=== PATIENT | male | born 1980 | race Caucasian/White ===

== ENCOUNTER 2018-11-29 07:40 | Day surgery (SDC) | payer OTHER ==
[~2018-11-29 07:40] MED LIST: Lactated Ringers 1,000 ML IV SCH; Lidocaine 1%/Sod Bicarbonate in NS 8.4% 1 ML Syringe IDERM PRN; Ropivacaine 0.5% 5 MG/ML 30 ML SDV ONE; Sodium Chloride 0.9% 10 ML Syringe FLUSH PRN
[2018-11-29] MEDS ORDERED: Rocuronium 50 MG/5 ML Vial ONE ×2 (07:42→09:24)
[2018-11-29] MEDS ORDERED: Ondansetron 4 MG/2 ML SDV ONE ×2 (07:42→09:24)
[2018-11-29] MEDS ORDERED: Lidocaine 1% 0 ML ONE (07:42)
[2018-11-29] MEDS ORDERED: Propofol 200 MG/20 ML SDV ONE ×2 (07:42→09:25)
[2018-11-29] MEDS ORDERED: Lactated Ringers 0 ML ONE (07:42)
[2018-11-29] MEDS ORDERED: ceFAZolin 1 GM Vial ONE ×2 (07:42→09:28)
[2018-11-29] MEDS ORDERED: Dexamethasone 4 MG/ML 5 ML MDV ONE (07:43)
[2018-11-29] MEDS ORDERED: fentaNYL 250 MCG/5 ML SDV ONE ×2 (07:43→08:31)
[2018-11-29] MEDS ORDERED: Ketorolac 30 MG/ML SDV ONE (07:43)
[2018-11-29] MEDS ORDERED: Lidocaine 1% 2 ML ONE (07:59)
--- NOTE | 2018-11-29 08:18 | PCM.PREANE ---
Preanesthetic Assessment - Procedure Proposed Procedure: right shoulder video arthroscopy with biceps tenodesis - Anesthesia/Transfusion/Family Hx Anesthesia History: Prior Anesthesia Without Reaction Family History of Anesthesia Reaction: No Transfusion History: No Prior Transfusion(s) - Review of Systems General: No Symptoms Pulmonary: No Symptoms Cardiovascular: No Symptoms Gastrointestinal: No Symptoms Neurological: No Symptoms Other: Reports: None - Physical Assessment NPO Status Date: 11/28/18 NPO Status Time: 19:00 Pulse: 64 O2 Sat by Pulse Oximetry: 98 Respiratory Rate: 16 Blood Pressure: 130/78 Temperature: 97.4 F Height: 5 ft 10 in Weight: 91 kg ASA Class: 1 Mental Status: Alert & Oriented x3 Airway Class: Mallampati = 2 Dentition: Reports: Normal Dentition Thyro-Mental Finger Breadths: 3 Mouth Opening Finger Breadths: 3 ROM/Head Extension: Full Lungs: Clear to Auscultation, Normal Respiratory Effort Cardiovascular: Regular Rate, Regular Rhythm - Allergies Allergies/Adverse Reactions: Allergies Allergy/AdvReac Type Severity Reaction Status Date / Time No Known Allergies Allergy Verified 11/28/18 15:24 - Blood Blood Available: No - Acknowledgements Anesthesia Type Planned: General Anesthesia Pt an Appropriate Candidate for the Planned Anesthesia: Yes Alternatives and Risks of Anesthesia Discussed w Pt/Guardian: Yes Pt/Guardian Understands and Agrees with Anesthesia Plan: Yes PreAnesthesia Questionnaire HEENT History: Reports: Impaired Vision Cardiovascular History: Reports: None Respiratory History: Reports: None Gastrointestinal History: Reports: None Genitourinary History: Reports: None EXCEPTION[employer] CHILDREN'[employer] TE[employer]ER History: Reports: None Musculoskeletal History: Reports: Back Pain, Chronic, Other (See Below) Other Musculoskeletal History: low back pain, degenerative disc disease Neurological History: Reports: None Psychiatric History: Reports: None Endocrine/Metabolic History: Reports: None Hematologic History: Reports: None Immunologic History: Reports: None Oncologic (Cancer) History: Reports: None Dermatologic History: Reports: None - Past Surgical History Head Surgeries/Procedures: Reports: None HEENT Surgical History: Reports: None Cardiovascular Surgical History: Reports: None Respiratory Surgical History: Reports: None GI Surgical History: Reports: Appendectomy Female Surgical History: Reports: None Male Surgical History: Reports: None Endocrine Surgical History: Reports: None Neurological Surgical History: Reports: None Musculoskeletal Surgical History: Reports: None Oncologic Surgical History: Reports: None Dermatological Surgical History: Reports: None - SUBSTANCE USE Smoking Status *Q: Never Smoker Tobacco Use Within Last Twelve Months: No Second Hand Smoke Exposure: No Days Per Week of Alcohol Use: 3 Number of Drinks Per Day: 3 Total Drinks Per Week: 9 Recreational Drug Use History: No - HOME MEDS Home Medications: Home Meds . [No Known Home Meds] 11/28/18 [History] - CURRENT (IN HOUSE) MEDS Current Meds: Current Medications Epinephrine HCl (Adrenalin) 3 mg .XX ONETIME ONE Stop: 11/29/18 09:01 Lactated Ringer's (Ringers, Lactated) 1,000 mls @ 125 mls/hr IV ASDIRECTED NORA Stop: 11/29/18 23:00 Lidocaine/Sodium Bicarbonate (Buffered Lidocaine 1% In Ns 8.4%) 0.25 ml IDERM ONETIME PRN PRN Reason: Prior to IV Start Stop: 11/29/18 18:00 Sodium Chloride (Saline Flush) 10 ml FLUSH ASDIRECTED PRN PRN Reason: Keep Vein Open Stop: 11/29/18 18:00 Discontinued Medications Cefazolin Sodium (Ancef) Confirm Administered Dose 2 gm .ROUTE .STK-MED ONE Stop: 11/29/18 07:43 Dexamethasone (Dexamethasone) Confirm Administered Dose 20 mg .ROUTE .STK-MED ONE Stop: 11/29/18 07:44 Fentanyl (Sublimaze) Confirm Administered Dose 250 mcg .ROUTE .STK-MED ONE Stop: 11/29/18 07:44 Lidocaine HCl (Xylocaine-Mpf 1%) Confirm Administered Dose 4 mls @ as directed .ROUTE .STK-MED ONE Stop: 11/29/18 07:43 Lactated Ringer's (Ringers, Lactated) Confirm Administered Dose 1,000 mls @ as directed .ROUTE .STK-MED ONE Stop: 11/29/18 07:43 Lidocaine HCl (Xylocaine-Mpf 1%) Confirm Administered Dose 2 mls @ as directed .ROUTE .STK-MED ONE Stop: 11/29/18 08:00 Ketorolac Tromethamine (Toradol) Confirm Administered Dose 30 mg .ROUTE .STK- MED ONE Stop: 11/29/18 07:44 Ondansetron HCl (Zofran) Confirm Administered Dose 4 mg .ROUTE .STK-MED ONE Stop: 11/29/18 07:43 Propofol (Diprivan 20 Ml) Confirm Administered Dose 400 mg .ROUTE .STK-MED ONE Stop: 11/29/18 07:43 Rocuronium Arpin (Zemuron) Confirm Administered Dose 50 mg .ROUTE .STK-MED ONE Stop: 11/29/18 07:43 Ropivacaine (Naropin 0.5%) Confirm Administered Dose 30 ml .ROUTE .STK-MED ONE Stop: 11/29/18 07:07
[2018-11-29] MEDS ORDERED: Midazolam 1 MG/ML 2 ML SDV ONE ×2 (08:31→10:38)
[2018-11-29] MEDS ORDERED: EPINEPHrine 1 MG/ML 30 ML MDV ONE (09:00)
--- NOTE | 2018-11-29 09:08 | PCM.SN ---
- Free Text/Narrative Note: 11/29/18 0835 Time out performed. Requested to place left interscale block with ultrasound guidance and nerve stimulator for post op pain control per Dr. Martinez and patient. Preop diagnosis strain of right beveps. Procedure is right shoulder video arthroscopy with biceps tendosis Informed consent obtained. Monitors and O2 placed at 2 l per n/c. Versed 2 mg and Fentanyl 150 mcg given IV total. Patient awake and talking during procedure. Right neck and clavicle area prepped with chlorprep. Sterile gloves, hat and mask worn. US probe with sterile sleeve placed midclavicular with ID of brachial plexus and subclavian artery. Brachial plexus followed cephalad to level of cricoid. Lidocaine 1% local anesthetic injected prior to block placement. 22 g 2 inch stimplex needle advanced with US guidance to brachial plexus. Positive forearm response at ..4mA with nerve stimulator. Ceased with saline injection.Ropivacaine 0.5% with epi 1:200,000 injected in increments of 5 ml with negative aspiration before each injection to a total of 30 ml. Good spread of local anesthetic seen on US. Patient tolerated procedure well. Vitals stable with no complaints. See nurses notes. AJordaCRNA
[2018-11-29] MEDS ORDERED: Lidocaine 1% 4 ML ONE (09:25)
[2018-11-29] MEDS ORDERED: Lactated Ringers 1,000 ML ONE (10:50)
[2018-11-29] MEDS ORDERED: fentaNYL 100 MCG/2 ML SDV IVPUSH PRN (11:48)
--- NOTE | 2018-11-29 11:49 | PCM.POSTAN ---
POST ANESTHESIA ASSESSMENT - MENTAL STATUS Mental Status: Somnolent - VITAL SIGNS Pulse Rate: 63 SaO2: 91 Resp Rate: 16 Blood Pressure: 143/91 Temperature: 36.3 C - RESPIRATORY Respiratory Status: Respiratory Rate WNL, Airway Patent, O2 Saturation Stable, Supplemental Oxygen - CARDIOVASCULAR CV Status: Pulse Rate WNL, Blood Pressure Stable - GASTROINTESTINAL GI Status: No Symptoms - PAIN Pain Score: 0 - POST OP HYDRATION Hydration Status: Adequate & Stable - OBSERVATIONS Free Text/Narrative:: no anesthesia complications noted
[2018-11-29] MEDS ORDERED: Acetaminophen/HYDROcodone 325-5 MG Tab PO PRN (12:34)
--- NOTE | 2018-11-29 13:21 | PCM48HPAN ---
Post Anesthesia Note - EVALUATION WITHIN 48HRS OF ANESTHETIC Vital Signs in Normal Range: Yes Patient Participated in Evaluation: Yes Respiratory Function Stable: Yes Airway Patent: Yes Cardiovascular Function Stable: Yes Hydration Status Stable: Yes Pain Control Satisfactory: Yes (starting to have a little pain posterior shoulder) Nausea and Vomiting Control Satisfactory: Yes Mental Status Recovered: Yes Pulse Rate: 63 Resp Rate: 17 Temperature: 97.4 F Blood Pressure: 143/91
--- NOTE | 2018-12-04 07:21 | PCM.OPNOTE ---
- General Post-Op/Procedure Note Date of Surgery/Procedure: 11/29/18 Operative Procedure(s): right shoulder video arthroscopy with anterior labral repair Pre Op Diagnosis: right shoulder pain with probable SLAP tear Post-Op Diagnosis: right shoulder anterior labral tear Anesthesia Technique: General ET Tube, Regional Block Primary Surgeon: Jd Martinez Anesthesia Provider: Bunny Armendariz [employer] Sales Consultant: Nataliia Tolbert EBL in mLs: 5 Complications: None Condition: Good
--- NOTE | 2018-12-04 08:04 | OR ---
DATE OF OPERATION: 11/29/2018 SURGEON: Jd Martinez MD OPERATION PERFORMED: Right shoulder video arthroscopy with anterior labral repair. PREOPERATIVE DIAGNOSIS: Right shoulder pain with probable SLAP tear. POSTOPERATIVE DIAGNOSIS: Right shoulder anterior labral tear. ANESTHESIA: General endotracheal intubation with regional interscalene block. ANESTHESIA PROVIDER: Merrill Gresham. MISSILE INSPECTOR PREFLIGHT: Nataliia Tolbert PA-C. ESTIMATED BLOOD LOSS: Less than 5 mL. COMPLICATIONS: None. CONDITION: Stable. DESCRIPTION OF PROCEDURE: The patient was identified in the preoperative holding area. Proper site was marked, identified by surgeon. The patient was taken back to the operating theater, where after adequate anesthesia, the patient was placed in the lazy left lateral decubitus position. Wedge was placed posteriorly. The patient was secured to the table. At this time, right upper extremity was sterilely prepped and draped in the usual sterile fashion. OR time-out was performed. The patient received 2 g of IV Ancef. 15 pounds of traction was then applied to the right upper extremity. OR time-out was performed. The patient received 2 g IV antibiotic. At this time, a standard posterior incision was made. Scope trocar was introduced into the glenohumeral joint. At this time, with the use of a spinal needle, anterior portal was also created with an outside-in technique. Subscapularis tendon was found to be intact. The undersurface of the rotator cuff showed no signs of erythema, no tear. There was no chondromalacia noted. The patient's biceps tendon was actually intact and no signs of erythema or fraying and the superior labrum was intact, but from the very anterior portion, right near the attachment of the biceps all the way down to roughly the 4:30 position, it showed complete tearing with stripping of the anterior capsule as well as anterior labrum off the front of the shoulder. At this time, a rasp was used to grasp the anterior edge of the glenoid as well as a resector to roughen the edge of the glenoid. At this time, two fiber sticks were then used through the labrum and two 2.9 mm Arthrex PushLock anchors were then placed. I found complete resolution and tightening of the anterior labrum as well as capsule and showed good buffer at the anterior portion of the glenoid. The biceps tendon itself showed no signs of instability. There was no signs of superior labral anterior-posterior tear and just the anterior labral tear which was completely reconstructed and was found to have good tension when probed. At this time, attention was turned to the subacromial space. I did perform a limited debridement but it showed no signs of erythema or rotator cuff tear pathology at this time. At this time, excess saline was drained from the shoulder. A 3-0 nylon suture was used for closure of the portal incisions. The patient was placed in a sterile soft dressing and a pillow sling and sent to the PACU in stable condition. STEFAN /[id number]
== END 2018-11-29 14:25 | disposition home or self-care (01) ==
LOC: JD.SDS 07:40
PROVIDERS: ATTEND Orthopaedic Surgery
DX: S43.401A Unspecified sprain of right shoulder joint, initial encounter (principal); X58.XXXA Exposure to other specified factors, initial encounter
CPT/HCPCS: 29806; 64415; A9270; C1713; J0171; J0690; J2001; J2250; J2405; J2704; J2795; J3010; J7120; 01630; J1100; J1885